=== PATIENT | male | born 1980 | race Caucasian/White ===

== ENCOUNTER 2016-06-30 19:43 | Emergency (ER) | payer SELFPAY ==
[~2016-06-30] VITALS: Ht 170.2 cm; Wt 131.0 kg
[2016-06-30 19:52] VITALS: Ht 170.2 cm; Wt 131.0 kg
[2016-06-30] MEDS ORDERED: IBUP-1542 PO (22:13)
--- NOTE | 2016-06-30 22:20 | ERD ---
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 Patient states that he put a piece of anion on the area to prevent bleeding. Bleeding was controlled before arriving to the ER. Patient does admit to some numbness and tingling of the distal digit. He denies any pain at this time. He has a recent tetanus shot. ROS 12 point review of systems was done, all negative except per HPI. 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 HEENT: Atraumatic. CHEST: Clear to auscultation bilaterally. There are no rales, wheezes or rhonchi. HEART: Regular rate and rhythm. No murmurs, clicks, rubs or gallops. EXTREMITIES: Patient has an avulsion laceration to the left second digit, distal one quarter of the nail bed is missing secondary to avulsion laceration. Patient is neurovascularly intact is full range of motion of his finger. NEURO: Alert and oriented. SKIN: There is no apparent rash or petechia. The skin is warm and dry. Procedures/MDM This is a 35-year-old male presents to the ER with a laceration to his second left digit. Area was irrigated with copious amounts of normal saline. At this time laceration repair is not possible as this is an avulsion laceration and a part of his nail bed is completely missing. Patient however is neurovascularly intact. Area was wrapped in a pressure dressing. Patient's TD shot is current. He will be sent home with ibuprofen for pain. He is to follow-up with his primary care doctor within 1-2 days or return to ER sooner if symptoms worsen. I shared my medical decision making with the patient he understands and agrees with plan. Departure Diagnosis: Primary Impression: Laceration Condition: Stable Patient Instructions: Laceration, All Additional Instructions: Llame al doctor FATEMEH y mansi felix JANELL PARA DENTRO DE 1-2 GARCIA.Dgale a la secretaria que nosotros le instruimos hacer esta janell.Avise o llame si roberson condicin se empeora antes de la janell. Regresa aqui si peor o no mejor. NACHO EATON Jun 30, 2016 22:20
== END 2016-06-30 22:31 | disposition home or self-care (01) ==
LOC: FTE 19:43
DX: S61.311A Laceration without foreign body of left index finger with damage to nail, initial encounter (principal); W26.0XXA Contact with knife, initial encounter; Y92.9 Unspecified place or not applicable
CPT/HCPCS: 99283